=== PATIENT | female | born 1975 | race Caucasian/White ===

== ENCOUNTER → 2023-02-06 13:23 | Outpatient (CLI) | payer OTHER, MEDICAID, SELFPAY ==
--- NOTE | 2023-02-06 13:26 | DI.RAD.S_ITS ---
PROCEDURE: XR RIBS LT MIN 3V W CXR1V INDICATIONS: Left posterior lower rib injury - s/p fall TECHNIQUE: 4 views of the left ribs were acquired, along with a single view chest. COMPARISON: None. FINDINGS: Surgical changes and devices: None. Bones and chest wall: No displaced fractures or dislocations. Possible nondisplaced fracture of the posterior 11th rib. No suspicious bony lesions. Overlying soft tissues appear unremarkable. Lungs and pleura: No pleural effusions or pneumothorax. Lungs appear clear. Mediastinum: Mediastinal contours appear normal. Heart size is normal. IMPRESSION: No displaced rib fractures are identified. Possible nondisplaced fracture of the posterior left 11th rib. If clinical symptoms persist, a repeat examination in 7-10 days is suggested for further evaluation. Dictated by: Anselmo Benito M.D. on 02/06/2023 at 16:15 Approved by: Anselmo Benito M.D. on 02/06/2023 at 16:17
== END ==
PROVIDERS: PCP Registered Nurse; Referring Provider Registered Nurse; Visit Provider Registered Nurse
DX: R07.81 Pleurodynia (principal)
CPT/HCPCS: 71101

== ENCOUNTER → 2023-05-06 15:14 | Outpatient (CLI) | payer OTHER, MEDICAID, SELFPAY ==
--- NOTE | 2023-05-06 15:17 | DI.CT.S_ITS ---
PROCEDURE: CT SINUS SCREEN WO CON INDICATIONS: Cyst and mucocele of nose and nasal sinus TECHNIQUE: Noncontrast 3.0 mm axial images acquired from the frontal sinuses to the mid-sella, with coronal and sagittal reformats. For radiation dose reduction, the following was used: automated exposure control, adjustment of mA and/or kV according to patient size. COMPARISON: None. FINDINGS: Image quality: Excellent. Maxillary Sinuses: No bony remodeling or destruction. There is a left anterior mucous retention cyst seen. The maxillary sinuses otherwise appear clear. Ethmoid Air Cells: No bony remodeling or destruction. A few mucous retention cysts can be seen involving the posterior ethmoid air cells. Minimal mucosal thickening can be seen within the ethmoid air cells. Sphenoid Sinuses: No bony remodeling or destruction. A likely mucous retention cysts can be seen involving the posterior central sphenoid sinuses, as on series 2, image 20. Frontal Sinuses: No bony remodeling or destruction. Sinuses are clear. Ostiomeatal Complexes: The ostiomeatal complexes are patent, yet they are constitutionally narrowed, with bilateral Mandie cells. Miscellaneous: Visualized intra-orbital contents are normal. No mamie bullosa or paradoxical turbinate curvature. There is mild leftward nasal septal deviation, with a leftward directed bony nasal septal spur. IMPRESSION: No significant active paranasal sinus disease is seen. Scattered mucous retention cysts can be seen. Mild leftward nasal septal deviation, with a leftward directed bony nasal septal spur. The ostiomeatal complexes are patent, yet they are constitutionally narrowed, with bilateral Mandie cells. Dictated by: Evans Santizo M.D. on 05/06/2023 at 16:04 Approved by: Evans Santizo M.D. on 05/06/2023 at 16:06
== END ==
PROVIDERS: PCP Registered Nurse; Referring Provider Registered Nurse; Visit Provider Registered Nurse
DX: J34.1 Cyst and mucocele of nose and nasal sinus (principal); J34.2 Deviated nasal septum
CPT/HCPCS: 70486

== ENCOUNTER → 2023-08-25 14:13 | Outpatient (CLI) | payer OTHER, MEDICAID, SELFPAY ==
--- NOTE | 2023-08-25 14:19 | DI.RAD.S_ITS ---
PROCEDURE: XR CHEST 1V INDICATIONS: POSITIVE TB TEST TECHNIQUE: One view of the chest was acquired. COMPARISON: None. FINDINGS: Surgical changes and devices: None. Lungs and pleura: Lungs are clear. No pleural effusions or pneumothorax. Mediastinum: Mediastinal contours appear normal. Heart size is normal. Bones and chest wall: No suspicious bony lesions. Overlying soft tissues appear unremarkable. IMPRESSION: Portable chest within normal limits for age. Dictated by: Marga Akbar M.D. on 08/25/2023 at 15:27 Approved by: Marga Akbar M.D. on 08/25/2023 at 15:27
== END ==
PROVIDERS: PCP Registered Nurse; Referring Provider Registered Nurse; Visit Provider Registered Nurse
DX: R76.11 Nonspecific reaction to tuberculin skin test without active tuberculosis (principal)
CPT/HCPCS: 71045